=== PATIENT | female | born 1995 | race Caucasian/White ===

== ENCOUNTER 2022-07-25 19:19 | Emergency (ER) | payer OTHER ==
[2022-07-25 19:34] VITALS: BP 107/38; PULSE 82; RESP 18; TEMP 98.2; BMI 19.5
[2022-07-25] MEDS ORDERED: IBUPROFEN 600 MG TABLET (FP) PO ONE ×2 (20:45→20:48)
== END 2022-07-25 21:25 | disposition home or self-care (01) ==
LOC: JERFT 19:19
DX: M72.2 Plantar fascial fibromatosis (principal)
CPT/HCPCS: 73630-TC-RT-FY; 99283-25